=== PATIENT | female | born 1965 | race Caucasian/White ===

== ENCOUNTER 2019-01-08 05:33 | Day surgery (SDC) | payer BC ==
[2019-01-08] MEDS ORDERED: LIDOCAINE 2% MDV (20MG/ML) 20ML VIAL IV ONE (05:34)
[2019-01-08] MEDS ORDERED: FENTANYL PF 100MCG/2ML VIAL IV ONE (05:34)
[2019-01-08] MEDS ORDERED: PROPOFOL 10 MG/ML VIAL IV ONE (05:34)
[2019-01-08] MEDS ORDERED: KETOROLAC 30 MG/ML VIAL IVP ONE (05:34)
[2019-01-08] MEDS ORDERED: RINGERS SOLUTION,LACTATED 1,000 ML IV ONE ×2 (05:55→07:04)
[2019-01-08] MEDS ORDERED: ACETAMINOPHEN 1,000 MG/100 ML BTL IVPB ONE (06:00)
[2019-01-08] MEDS ORDERED: BETAMETHASONE 6 MG/1 ML 5ML VIAL IM ONE (06:58)
[2019-01-08] MEDS ORDERED: BUPIVACAINE 0.25% W/EPI MPF 30ML VIAL IM ONE (06:58)
--- NOTE | 2019-01-08 13:50 | Operative Note ---
DATE OF SURGERY: 01/08/2019 SURGEON: Ole Hernandez DO PREOPERATIVE DIAGNOSIS: Adhesive capsulitis of the left shoulder. POSTOPERATIVE DIAGNOSIS: Adhesive capsulitis of the left shoulder. OPERATION: 1. Manipulation under anesthesia left shoulder. 2. Injection left shoulder. DESCRIPTION OF PROCEDURE: This 53-year-old female was taken to the operating room and placed in the supine position on the operating room table. General anesthetic was administered. Following satisfactory anesthetic, manipulation of the left shoulder was performed. The patient's shoulder was taken through range of motion and found to be restricted at approximately 145 degrees of forward flexion, abduction to 60 degrees, external rotation limited to approximately 60- 70 degrees, internal rotation to 60 degrees. The shoulder was then gently manipulated with stabilizing hand over the glenohumeral joint, and manipulation was taken to 120 degrees of abduction, 90-95 degrees of external rotation, forward flexion to 180 degrees, extension to approximately 45-50 degrees and full crossover was accomplished without difficulty. Internal rotation to 90 degrees. Disruption of cicatrix could be palpated with manipulation of the shoulder. The anterior aspect of the shoulder was then prepped with alcohol and a 22-gauge spinal needle was passed into the glenohumeral joint. A mixture of 2 mL of Celestone Soluspan and 4 mL of 0.5% Marcaine with epinephrine was injected after aspiration. The needle was then removed and a bandage applied. The patient was then taken to the recovery room in satisfactory condition. GROSS PATHOLOGY: This patient demonstrated findings consistent with adhesive capsulitis of the left shoulder and it was gently manipulated in the manner described above to normal range of motion as described. CC: AMADOR AZEVEDO MD, FACP GILDA
== END 2019-01-08 07:46 | disposition home or self-care (01) ==
LOC: SUR 05:33
PROVIDERS: ATTEND Orthopaedic Surgery
DX: M75.02 Adhesive capsulitis of left shoulder (principal); F17.210 Nicotine dependence, cigarettes, uncomplicated
CPT/HCPCS: 81025; J1885; J7120